=== PATIENT | male | born 1965 | race African-American/Black ===

== ENCOUNTER 2018-06-01 11:25 | Day surgery (SDC) | payer OTHER ==
[~2018-06-01 11:25] MED LIST: CEFAZOLIN 1 GM INJ; CEFAZOLIN 2 GM/50 ML (PMX) 50 ML IVPB; EPHEDrine SULFATE 50 MG/5 ML SYG; SOD CHLORIDE 0.9% 1,000 ML IV
[2018-06-01 12:46] LABS: ADD MAN DIFF? NO
[2018-06-01 12:49] LABS: BASOPHILS % 0.7 % (0.0-2.0); EOSINOPHILS # 0.1 10^3/ul (0.0-0.5); EOSINOPHILS % 2.1 % (0.0-7.0); HEMATOCRIT 43.5 % (42.0-52.0); HEMOGLOBIN 14.7 g/dl (14.0-18.0); LYMPHOCYTES # 1.7 10^3/ul (0.8-2.9); LYMPHOCYTES % 26.9 % (15.0-51.0); MEAN CORPUSCULAR HEMOGLOBIN 30.3 pg (29.0-33.0); MEAN CORPUSCULAR HGB CONC 33.8 g/dl (32.0-37.0); MEAN CORPUSCULAR VOLUME 89.7 fl (82.0-101.0); MEAN PLATELET VOLUME 8.7 fl (7.4-10.4); MONOCYTE # 0.6 10^3/ul (0.3-0.9); MONOCYTES % 10.4 % (0.0-11.0); NEUTROPHIL # 3.7 10^3/ul (1.6-7.5); NEUTROPHILS % 59.6 % (39.0-77.0); PLATELET COUNT 286 10^3/UL (140-415); RED BLOOD COUNT 4.85 10^6/ul (4.70-6.10); RED CELL DISTRIBUTION WIDTH 13.6 % (11.5-14.5)
[2018-06-01 12:49] LABS: WHITE BLOOD COUNT 6.1 10^3/ul (4.8-10.8)
[2018-06-01] MEDS ORDERED: hydrALAzine 20 MG INJ IV (13:00)
[2018-06-01] MEDS ORDERED: METOCLOPRAMIDE 10 MG INJ IV (13:00)
[2018-06-01] MEDS ORDERED: OXYCODONE/ACETAMINOPHEN (5/325) TAB PO (13:00)
[2018-06-01] MEDS ORDERED: ONDANSETRON 4 MG INJ IV (13:00)
[2018-06-01] MEDS ORDERED: HYDROmorphONE 1 MG/5 ML IV SYRINGE IV ×2 (13:00)
[2018-06-01] MEDS ORDERED: LABETALOL HCL 20MG INJ IV (13:00)
[2018-06-01] MEDS ORDERED: FENTAnyl 50 MCG/ML VIAL IV ×3 (13:00)
[2018-06-01] MEDS ORDERED: DIPHENHYDRAMINE 50 MG INJ IV (13:00)
[2018-06-01] MEDS ORDERED: EPHEDrine SULFATE 50 MG/5 ML SYG IV (13:00)
[2018-06-01] MEDS ORDERED: FENTAnyl 50 MCG/ML VIAL (13:01)
[2018-06-01] MEDS ORDERED: MIDAZOLAM 1 MG/ML 2 ML INJ (13:01)
[2018-06-01] MEDS ORDERED: ROCURONIUM 50 MG INJ (13:01)
[2018-06-01] MEDS ORDERED: PROPOFOL 20 ML (13:01)
[2018-06-01] MEDS ORDERED: ROPIVACAINE 0.5 % 30 ML VIAL (13:02)
[2018-06-01 13:06] LABS: ALANINE AMINOTRANSFERASE 29 IU/L (13-69); ALBUMIN 3.6 g/dl (3.3-4.9); ALBUMIN/GLOBULIN RATIO 1.12; ALKALINE PHOSPHATASE 81 IU/L (42-121); ANION GAP 11 (8-16); ASPARTATE AMINO TRANSFERASE 38 IU/L (15-46); BILIRUBIN,INDIRECT 0.7 mg/dl (0-1.1); BILIRUBIN,TOTAL 0.7 mg/dl (0.2-1.3); BLOOD UREA NITROGEN 17 mg/dl (7-20); CALCIUM 9.3 mg/dl (8.4-10.2); CARBON DIOXIDE 27 mmol/L (21-31); CHLORIDE 105 mmol/L (97-110); CREATININE 0.98 mg/dl (0.61-1.24); GLUCOSE 80 mg/dl (70-220); POTASSIUM 4.3 mmol/L (3.5-5.1); SODIUM 139 mmol/L (135-144); TOTAL PROTEIN 6.8 g/dl (6.1-8.1)
[2018-06-01] MEDS ORDERED: BUPIVACAINE 0.25% (MPF) 30 ML INJ (13:15)
[2018-06-01 13:22] LABS: INR 0.92; PROTIME 12.4 Sec (11.9-14.9)
[2018-06-01 13:23] LABS: PARTIAL THROMBOPLASTIN TIME 27.2 Sec (23.0-35.0)
[2018-06-01] MEDS ORDERED: KETOROLAC 30 MG INJ (13:40)
[2018-06-01] MEDS ORDERED: METOCLOPRAMIDE 10 MG INJ (13:40)
[2018-06-01] MEDS ORDERED: ONDANSETRON 4 MG INJ (13:40)
[2018-06-01] MEDS ORDERED: ACETAMINOPHEN 1000MG/100ML IV 100 ML (13:40)
[2018-06-01] MEDS ORDERED: DEXAMETHASONE 4 MG/ML 1 ML INJ (13:40)
[2018-06-01] MEDS ORDERED: PHENYLephrine (100 MCG/ML) 5ML SYG (13:47)
[2018-06-01] MEDS ORDERED: HYDROCODONE/APAP (5/325) TAB PO (14:30)
[2018-06-01] MEDS: HYDROmorphONE 1 MG/5 ML IV SYRINGE IV (14:33)
[2018-06-01] MEDS: MEPERIDINE 25 MG INJ IV (14:33)
[2018-06-01] MEDS: OXYCODONE/ACETAMINOPHEN (5/325) TAB PO (16:09)
== END 2018-06-01 17:31 | disposition home or self-care (01) ==
LOC: SDS 11:25
DX: K40.30 Unilateral inguinal hernia, with obstruction, without gangrene, not specified as recurrent (principal)
CPT/HCPCS: 49507; 71045; 80053; 85025; 85610; 85730; 88302